=== PATIENT | female | born 1950 | race Caucasian/White ===

== ENCOUNTER 2020-09-07 19:01 | Inpatient (IN) | payer OTHER ==
[2020-09-07] VITALS (11 sets, daily range): BP systolic 62–113; BP diastolic 38–60
[~2020-09-07] VITALS: Ht 162.6 cm; Wt 77.7 kg
--- NOTE | ~2020-09-07 | EMS ---
[facility] [id number] EMS Patient Care Report Name: BILLY MORALES Room #: 170-12 ADM IN M.R.#: [id number] Admission: 09/07/20 Attend Phys: Mook Monreal Discharge: Date of : 48 Report #: [id number] THIS REPORT FOR: //name// Report Transmitted: 09/07/2020 21:45 EMS Care Summary [place], [place]/[facility] Incident [id number] @ 09/07/2020 18:28 Incident Location [address] [place] [address] Patient BILLY MORALES Female, 70 Years 1950 Patient Address [address] [place] [address] Patient History None Reported, Patient Allergies No known allergies, Patient Medications None Reported, Chief Complaint ALTERED LOC Disposition Transported [place] Dispatch Reason Hemorrhage/Laceration Transported To [facility] Narrative SCENE: ON ARRIVAL EMS MET BY PT AND GUIDED TO BACK DOOR, HE STATED THAT WAS THE ONLY WAY TO ACCESS THE PT. EMS ENTERED RESIDENCE WITH BARELY ENOUGH ROOM FOR CREW TO ENTER. HOUSE IS IN A COMPLETE STATES OF DISARRAY, WITH ITEMS AND TRASH STACKED AT LEAST 5 FOOT TALL. EMS HEARD [place] [address] EMS Patient Care Report Name: BILLY MORALES Room #: 170-12 ADM IN M.R.#: [id number] Admission: 09/07/20 Attend Phys: Mook Monreal Discharge: Date of : 48 Report #: [id number] AND WAS ABLE TO LAY EYES ON PT , WHO WAS IN A T SHIRT AND DIAPER, BUT EMS UNABLE TO ACCESS PT DUE TO CLUTTER IN HOUSE. EMS CALLED MORE PERSONNEL IN TO CLEAR A PATH TO PT AND TO CLEAR A PATH TO EXTRICATE PT. PT IS OF NO ASSISTANCE TO EMS, IS FLIPPANT ABOUT THE STATUS OF BOTH THE HOUSE AND THE PT. PT IS UNABLE TO ADVISE IF PT HAS ANY MEDICAL HISTORY, OR HOW LONG SHE HAS BEEN IN THIS CONDITION, OR EVEN WHAT IS NORMAL FOR HER. MULTIPLE BOXES OF WINE ABOUT THE RESIDENCE. PT HAD TO BE PULLED ONTO EMS ME[place]. PT IS NON VERBAL AND ONLY GRUNTS AND MOANS. PT HAS DARK RED BLOOD ABOUT THE MOUTH. PT STOMACH APPEARS DISTENDED. PT SKIN IS JAUNDICED. AMBULANCE: PT REQUIRED SUCTION OF DARK RED BLOOD FROM ORAL CAVITY. PT PLACED ON NC. IV INITIATED AND FLUIDS ADMINISTRED EN ROUTE. NO CHANGES. Initial Vitals @18:52P: 95,R: 14,BP: 103/62,GCS: 11,SpO2: 88,Revised Trauma: 11, @18:48P: 111,R: 16,BP: 79/42,GCS: 11,Glucose: 139,SpO2: 74,Revised Trauma: 10, @18:47P: 71,R: 12,Pain: 0/10,GCS: 11,SpO2: 73, Assessments @18:42MENTAL:Other,SKIN:Jaundiced,HEENT:Neck/Airway: Other,Head/Face: No Abnormalities,LUNG SOUNDS:General: Other,ABDOMEN:General: Other,PELVIS//GI:Incontinence,Pelvis GUOther,EXTREMITIES:PULSE:NEURO:@18:52MENTAL:Other,SKIN:Jaundiced,HEENT:LUNG SOUNDS:General: Other,ABDOMEN:General: Other,PELVIS//GI:EXTREMITIES:PULSE:NEURO: Impression Altered Mental Status Procedures @18:42ALS AssessmentResponse: UnchangedSucceeded@18:49Oxygen FlowRate: 3 Device: Nasal Cannula (NC) Response: ImprovedSucceeded@18:45Saline Lock 10cc (18 ga) Site: Antecubital-LeftResponse: UnchangedSucceeded@18:46Normal Saline (.9% NaCl) 200cc () Site: Antecubital-LeftResponse: UnchangedSucceeded@18:473-Lead ECGResponse: UnchangedSucceeded@18:43StretcherResponse: Unchanged@18:43General CommentsResponse: Unchanged@18:44General CommentsResponse: Unchanged@18:51Suction Response: UnchangedSucceeded Timeline 18:27,Call Received 18:27,Dispatch Notified 18:28,Dispatched 18:29,En Route 18:33,On Scene 18:42,At Patient [address] [place] [address] EMS Patient Care Report Name: ANDREWBILLYLOLA AVILA Room #: 170-12 ADM IN M.R.#: [id number] Admission: 09/07/20 Attend Phys: Mook Monreal Discharge: Date of : 48 Report #: [id number] 18:42,ALS Assessment,Response: UnchangedSucceeded, 18:43,Stretcher,Response: Unchanged 18:43,General Comments,Response: Unchanged 18:44,General Comments,Response: Unchanged 18:45,Saline Lock 10cc 18 ga Site: Antecubital-Left,Response: UnchangedSucceeded, 18:46,Normal Saline (.9% NaCl) 200cc Site: Antecubital-Left,Response: UnchangedSucceeded, 18:47,3-Lead ECG,Response: UnchangedSucceeded, 18:47,BP: / M,PULSE: 71,RR: 12 R,SPO2: 73 Ox,ETCO2: ,BG: ,PAIN: 0,GCS: 11, 18:48,BP: 79/42 M,PULSE: 111,RR: 16 R,SPO2: 74 Ox,ETCO2: ,B,PAIN: ,GCS: 11, 18:49,Oxygen FlowRate: 3 Device: Nasal Cannula (NC) Response: ImprovedSucceeded, 18:50,Depart Scene 18:51,Suction Response: UnchangedSucceeded, 18:52,BP: 103/62 M,PULSE: 95,RR: 14 R,SPO2: 88 Ox,ETCO2: ,BG: ,PAIN: ,GCS: 11, 18:54,At Destination 19:09,Call Closed Disclaimer v1.1 Copyright 2020 [employer] This EMS Care Summary contains data elements from the applicable legal record (which may be displayed differently). It is designed to provide pertinent information for the following purposes: continuity of care, clinical quality, and state data reporting. The complete legal record is available to ED staff and administrators of the receiving hospital in [employer]'s Patient Tracker. All data is provided "as is."
--- NOTE | ~2020-09-07 | P ---
[facility] [place] [address] PROCEDURE REPORT Name: BILLY MORALES Room #: 249-P ADM IN M.R.#: [id number] Admission: 09/07/20 Attend Phys: Mart Mcrae MD Discharge: Date of : 48 Report #: [id number] THIS REPORT FOR: cc: FAM - No family physician/PCP FAM - No family physician/PCP Sidney Howell MD ~ DATE OF SERVICE: 09/08/2020 INDICATION: Suspected variceal bleed. DESCRIPTION OF PROCEDURE: The consent was obtained from the patient's for repeat upper endoscopy due to ongoing active GI bleeding. The adult endoscope was introduced through the mouth into the stomach all the way to the second part of the small bowel and then withdrawn carefully. With careful inspection, there was approximately 500 mL of bright red blood in the gastric fundus that was suctioned. There was small esophageal varices with a nipple that was suspected source of the bleeding, but this was too small to treat endoscopically. The blood was suctioned and there was a hiatal hernia, severe erosive esophagitis and possible So's esophagus overlying the esophageal varices. No gastric varices were identified on retroflexion and the exam was terminated without any complications. RECOMMENDATIONS: To continue supportive care and continued to discuss goals of care with the patient and family. By: 1224 [id number] Sidney Howell MD /nt
[2020-09-07 19:21] LABS: ABSOLUTE NEUTROPHILS 5.7 thou/uL (1.4-8.2); BASOPHILS 0.8 % (0.0-2.0); LYMPHOCYTES 16.7 % (24.0-44.0); MCH 35.3 pg (26.0-34.0); MCHC 32.1 g/dL (28.0-37.0); MCV 109.8 fL (80.0-100.0); MONOCYTES 6.7 % (1.0-8.0); PLATELET COUNT 143 thou/uL (150-400); POLYS 75.8 % (36.0-66.0); RDW 17.3 % (10.5-14.5); WBC 7.6 thou/uL (4.0-11.0)
[2020-09-07 19:23] LABS: HEMATOCRIT 16.5 % (37.0-47.0); HEMOGLOBIN 5.3 gm/dL (12.0-15.0)
[2020-09-07 19:29] LABS: BE(vivo) -12.2 mmol/L (-2 to +3); HCO3 15.7 mmol/L (22.0-26.0); PCO2 48.7 mmHg (35.0-45.0); sO2 52.2 % (92.0-98.0)
[2020-09-07 19:30] LABS: CALCIUM 7.3 mg/dL (8.5-10.1); CREATININE 1.1 mg/dL (0.6-1.0); POTASSIUM 4.1 mmol/L (3.5-5.1)
[2020-09-07 19:40] LABS: ALBUMIN 1.2 g/dL (3.4-5.0); MAGNESIUM 1.7 mg/dL (1.8-2.4); TOTAL BILIRUBIN 2.5 mg/dL (0.2-1.0); TROPONIN-I 0.53 ng/mL (<0.06)
[2020-09-07 19:47] LABS: PO2 36.3 mmHg (80.0-100.0); pH 7.126 (7.360-7.450)
[2020-09-07 19:49] LABS: APTT 40.5 Seconds (24.5-32.8); INR 3.6; PROTIME 36.9 Seconds (9.3-11.4)
[2020-09-07 22:20] LABS: URINE BILIRUBIN NEGATIVE (Negative); URINE BLOOD TRACE (Negative); URINE CLARITY CLOUDY; URINE COLOR ORANGE; URINE GLUCOSE-RANDOM* NEGATIVE (Negative); URINE KETONES TRACE (Negative); URINE LEUKOCYTES-REFLEX TRACE (Negative); URINE NITRITE-REFLEX NEGATIVE (Negative); URINE PROTEIN (DIPSTICK) 1+ (Negative); URINE SPECIFIC GRAVITY >= 1.030 (1.005-1.035)
[2020-09-07 22:28] LABS: CHOLESTEROL 110 mg/dL (<200); HDL CHOLESTEROL 20 mg/dL (>40); LDL CHOLESTEROL 73 mg/dL (<100); TC:HDL 5.5 Ratio (Not establshd); TRIGLYCERIDE 85 mg/dL (<150); VLDL 17 mg/dL (<40)
[2020-09-07 22:29] LABS: SERUM ASSESSMENT Clear
[2020-09-07 22:49] LABS: BE(vivo) -10.2 mmol/L (-2 to +3); HCO3 16.3 mmol/L (22.0-26.0); PCO2 38.8 mmHg (35.0-45.0); PO2 105.7 mmHg (80.0-100.0)
[2020-09-07 22:51] LABS: pH 7.241 (7.360-7.450)
[2020-09-07 22:52] LABS: FOLIC ACID 2.7 ng/mL (8.6-58.9)
[2020-09-07 23:13] LABS: BACTERIA-REFLEX >30 Many /HPF (None Seen); CASTS None Seen /LPF (None Seen); CRYSTALS None Seen /LPF (None Seen); SQUAMOUS 0-3 Few /LPF (0-3); URINE RBC 0-2 Rare /HPF (0-2); URINE WBC-REFLEX 0-5 Rare /HPF (0-5)
[2020-09-07 23:49] LABS: HEMATOCRIT 22.6 % (37.0-47.0); MCH 32.5 pg (26.0-34.0); MCHC 32.6 g/dL (28.0-37.0); RBC 2.27 mil/uL (4.20-5.00); RDW 19.1 % (10.5-14.5); WBC 4.9 thou/uL (4.0-11.0)
[2020-09-07 23:50] LABS: HEMOGLOBIN 7.4 gm/dL (12.0-15.0); MCV 99.8 fL (80.0-100.0)
[2020-09-07 23:57] LABS: INR 2.7; PROTIME 27.7 Seconds (9.3-11.4)
[2020-09-07 23:58] LABS: CALCIUM 7.6 mg/dL (8.5-10.1); CREATININE 1.1 mg/dL (0.6-1.0); POTASSIUM 4.1 mmol/L (3.5-5.1)
[2020-09-08] VITALS (154 sets, daily range): BP systolic 52–162; BP diastolic 14–117
[2020-09-08 00:09] LABS: ALBUMIN 1.4 g/dL (3.4-5.0); TOTAL BILIRUBIN 2.7 mg/dL (0.2-1.0); TOTAL PROTEIN 5.1 g/dL (6.4-8.2)
[2020-09-08 06:33] LABS: HEMOGLOBIN 7.5 gm/dL (12.0-15.0)
[2020-09-08 06:34] LABS: HEMATOCRIT 22.7 % (37.0-47.0); MCH 31.7 pg (26.0-34.0); MCHC 33.2 g/dL (28.0-37.0); MCV 95.6 fL (80.0-100.0); RBC 2.38 mil/uL (4.20-5.00); RDW 17.3 % (10.5-14.5)
[2020-09-08 06:37] LABS: WBC 1.9 thou/uL (4.0-11.0)
[2020-09-08 06:42] LABS: % SATURATION 79 % (20-39); IRON 81 ug/dL (50-170); TIBC 102 ug/dL (250-450)
[2020-09-08 07:01] LABS: CALCIUM 6.9 mg/dL (8.5-10.1); CREATININE 1.1 mg/dL (0.6-1.0); POTASSIUM 3.8 mmol/L (3.5-5.1); TOTAL BILIRUBIN 2.4 mg/dL (0.2-1.0)
[2020-09-08 07:05] LABS: TROPONIN-I 2.46 ng/mL (<0.06)
--- NOTE | 2020-09-08 07:19 | EKG ---
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: swapna boston : 1950 Requested By: Estuardo Monsivais Order Number: [id number] MD: Abhi Paulino Measurements Intervals Williams Rate: 107 P: 90 LA: 188 QRS: 76 QRSD: 92 T: 120 QT: 332 QTc: 443 Interpretive Statements Sinus tachycardia Low voltage, extremity and precordial leads Nonspecific ST and T wave abnormality No previous ECG available for comparison Electronically Signed On 09-08-2020 7:18:56 INCREMENT MANAGER by Abhi Paulino [email or web address] <ELECTRONICALLY SIGNED> By: Abhi Paulino MD, [facility] 09/08/20717 33 33 Abhi Paulino MD, FACC /EPI
--- NOTE | 2020-09-08 08:55 | 2DMMODE ---
[facility] [place] [address] 2 D/M-MODE ECHOCARDIOGRAM Name: BILLY MORALES MARGARITA Room #: 249-P ADM IN M.R.#: [id number] Admission: 09/07/20 Attend Phys: Mart Mcrae MD Discharge: Date of : 48 Report #: [id number] THIS REPORT FOR: cc: DARIN - No family physician/PCP FAM - No family physician/PCP Bartolo Melendez MD ~ APPROVED REPORT Study performed: 09/08/2020 07:25:08 EXAM: Comprehensive 2D, Doppler, and color-flow Echocardiogram Patient Location: ICU Room #: 249 Status: routine BSA: 1.83 HR: 116 bpm BP: 63/41 mmHg Rhythm: Tachycardia Other Information Study Quality: Adequate Technically limited study due to body habitus, lungs, on vent. Indications Elevated troponin. 2D Dimensions RVDd: 36.10 mm IVSd: 9.04 (7-11mm) LVOT Diam: 19.84 (18-24mm) LVDd: 38.76 mm PWd: 7.88 (7-11mm) LVDs: 30.30 (25-40mm) Aortic Root: 28.81 mm Volumes Left Atrial Volume (Systole) Single Plane 4CH: 33.51 mL Single Plane 2CH: 42.64 mL LA ESV Index: 23.00 mL/m2 Aortic Valve AoV Peak Rishi.: 2.83 m/s AO Peak Gr.: 32.14 mmHg LVOT Max P.04 mmHg AO Mean Gr.: 19.78 mmHg [facility] [place] [address] 2 D/M-MODE ECHOCARDIOGRAM Name: BILLY MORALES MARGARITA Room #: 249-P ADM IN M.R.#: [id number] Admission: 09/07/20 Attend Phys: Mart Mcrae MD Discharge: Date of : 48 Report #: [id number] AO V2 Mean: 2.17 m/s LVOT Max V: 1.23 m/s AO V2 VTI: 41.26 cm GARETH Vmax: 1.34 cm2 Pulmonary Valve PV Peak Rishi.: 1.00 m/s PV Peak Gr.: 3.99 mmHg Tricuspid Valve TR Peak Rishi.: 2.06 m/s RAP Estimate: 5.00 mmHg TR Peak Gr.: 17.00 mmHg PA Pressure: 22.00 mmHg Left Ventricle The left ventricle is normal size. There is normal LV segmental wall motion. There is normal left ventricular wall thickness. Left ventricular systolic function is normal. LVEF is 55-60%. This study is not technically sufficient to allow evaluation of the LV diastolic function. Right Ventricle The right ventricle is normal size. The right ventricular systolic function is normal. Atria The left atrium size is normal. The right atrium size is normal. Aortic Valve Aortic valve is moderately calcified. No aortic regurgitation is present. There is mild valvular aortic stenosis. Mitral Valve Mitral valve leaflets are thickened. There is no mitral valve regurgitation noted. No evidence of mitral valve stenosis. Tricuspid Valve The tricuspid valve is normal in structure. Trace tricuspid regurgitation. Estimated PAP is 20-25mmHg. Pulmonic Valve Pulmonic valve is not well visualized. Great Vessels The aortic root is normal in size. IVC is normal in size and collapses >50% with inspiration. [facility] [address] [place] [address] 2 D/M-MODE ECHOCARDIOGRAM Name: BILLY MORALES WAGNER Room #: 249-P ADM IN M.R.#: [id number] Admission: 09/07/20 Attend Phys: Mart Mcrae MD Discharge: Date of : 48 Report #: [id number] Pericardium There is no pericardial effusion. Bilateral pleural effusions noted. <Conclusion> The left ventricle is normal size. There is normal left ventricular wall thickness. Left ventricular systolic function is normal. The right ventricle is normal size. The left atrium size is normal. There is mild valvular aortic stenosis. There is no mitral valve regurgitation noted. Trace tricuspid regurgitation. Estimated PAP is 20-25mmHg. Bilateral pleural effusions noted. <ELECTRONICALLY SIGNED> By: Bartolo Melendez MD 09/08/20 [phone] Bartolo Melendez MD /INF
--- NOTE | 2020-09-08 08:57 | NUR ---
PT CAME FROM GI LAB AT 2221 LAST NOC, P WAS HYPOTENISIVE AND INTUBATED. ABG DRAWN AND DR HOLLEY NOTIFIED AR 2255. DR HOLLEY STATED HE WOULD COME SEE PT AND PLACE A CENTRAL LINE PT LACKED ONE. ALL MEDS GIVEN PER NOV. PT SKIN IS BRUISED ON ALL PERIPHERAL IV ACCESS SITE. REDNESS NOTED ON PT'S COCYX AND HEART FOAM DRESSING PLACED ON COCYX. MEDS GIVEN PER NOV. PT ONLY HAD 62ML OUT U/O DR. HOLLEY AWARE. PT IS HYPOTENSIVE AND STILL UNSTABLE AT THIS TIME AND WILL CONTINUE TO CLOSELY MONITOR
[2020-09-08 10:01] LABS: BE(vivo) -10.5 mmol/L (-2 to +3); HCO3 15.8 mmol/L (22.0-26.0); PCO2 36.8 mmHg (35.0-45.0); PO2 112.1 mmHg (80.0-100.0); sO2 97.5 % (92.0-98.0)
[2020-09-08 10:02] LABS: pH 7.251 (7.360-7.450)
[2020-09-08 11:07] LABS: MAGNESIUM 1.9 mg/dL (1.8-2.4)
--- NOTE | 2020-09-08 13:25 | NUR ---
Patient admits with GI bleed. Admits from home where she resides with spouse. Chart reviewed, sp with RN. Patient consumes a box of wine daily. Per medical record she needs assistance from spouse for adls. EMS noted home appears as though they brandi, it was extremenly cluttered. EMS noted to plan to hotline patient/spouse. Attempted to call spouse left message on answering machine. Unaware if any children. Patient is intubated and DNR. 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
--- NOTE | 2020-09-08 14:00 | NUR ---
JOHANNA MORALES AT BEDSIDE. TALKED TO DR. DUNAWAY AND DR. FLORES. CODE STATUS CHANGED. CONTACT INFORMATION CHARTED.
[2020-09-08 15:41] LABS: HEMATOCRIT 26.2 % (37.0-47.0); HEMOGLOBIN 8.8 gm/dL (12.0-15.0); MCH 31.6 pg (26.0-34.0); MCHC 33.7 g/dL (28.0-37.0); MCV 93.8 fL (80.0-100.0); RBC 2.79 mil/uL (4.20-5.00); RDW 15.7 % (10.5-14.5); WBC 5.5 thou/uL (4.0-11.0)
--- NOTE | 2020-09-08 17:26 | NUR ---
INFORMED DR. DUNAWAY ABOUT PT LOW URINE OUTPUT. ORDER RECEIVED.
[2020-09-09] VITALS (7 sets, daily range): BP systolic 111–140; BP diastolic 41–70
[2020-09-09 02:06] LABS: HAV IgM AB (ANTI-HAV IgM) Negative (Negative); HEPATITIS B SURFACE AG Negative (Negative); HEPATITIS C VIRUS AB <0.1 (0.0-0.9)
[2020-09-09 04:05] LABS: HEMATOCRIT 22.1 % (37.0-47.0); HEMOGLOBIN 7.5 gm/dL (12.0-15.0); MCH 31.6 pg (26.0-34.0); MCHC 34.1 g/dL (28.0-37.0); MCV 92.8 fL (80.0-100.0); RBC 2.38 mil/uL (4.20-5.00); RDW 16.1 % (10.5-14.5); WBC 6.4 thou/uL (4.0-11.0)
[2020-09-09 04:25] LABS: ALBUMIN 2.9 g/dL (3.4-5.0); CALCIUM 7.5 mg/dL (8.5-10.1); MAGNESIUM 1.8 mg/dL (1.8-2.4); TOTAL PROTEIN 5.2 g/dL (6.4-8.2)
[2020-09-09 04:28] LABS: TOTAL BILIRUBIN 4.3 mg/dL (0.2-1.0)
[2020-09-09 04:29] LABS: TROPONIN-I 2.67 ng/mL (<0.06)
[2020-09-09 04:36] LABS: INR 3.3
--- NOTE | 2020-09-09 08:16 | NUR ---
PATIENT WITH PRESISTENT SATS IN THE 80'S. 100 PERCENT ON THE VENT. SPOKE WITH DR. HOLLEY. INCREASED PEEP TO 10. RESULTED IN IMPROVEMENT OF OXYGEN SATURATION. SATS NO IN MID 'S.
--- NOTE | 2020-09-09 10:50 | HC ---
[facility] [place] [address] CONSULTATION Name: BILLY MORALES Room #: 249-P ADM IN M.R.#: [id number] Admission: 09/07/20 Attend Phys: Mart Mcrae MD Discharge: Date of : 48 Report #: [id number] THIS REPORT FOR: cc: FAM - No family physician/PCP FAM - No family physician/PCP Kaden Greer MD ~ DATE OF SERVICE: 09/07/2020 HISTORY OF PRESENT ILLNESS: The patient is a 70-year-old female with a long history of alcohol abuse with recent gastrointestinal bleed. The history is obtained through her who is a fair historian. The patient is unable to give any history, although she is speaking. She is confused. She is not oriented to time or place. states the patient began having hematemesis, which was both bright red and dark reddish blood starting yesterday. She had several episodes of bleeding yesterday and then continued to have bleeding later today as well. No previous history of GI bleed per se; however, he noticed that she may have had some bleeding several months ago that spontaneously resolved. No previous history of EGD or colonoscopy. The patient's hemoglobin on admission was 5.3. Her INR was 3.6. She is not on any anticoagulation. She has an ammonia level 116. The patient has not seen a doctor in many years. Apparently was drinking large amounts of alcohol for a long period of time, although the states she started slowing down slightly. He is her primary caregiver. She is essentially bedridden. She has a long history of smoking. He has noticed that her abdomen has become more distended over the last several years. Ambulance was called to the house. Apparently, there was a large amount of alcohol noticed in the house, the house is very cluttered, difficulty even get to the patient because of having to move belongings. In the Emergency Room, she was noted to have old blood in her mouth, again is confused, 2 units of packed cells have been given. FFP has been ordered and is being delivered. She is currently in the Emergency Room on a nonrebreather, satting 89%. She is a DNR. Again, this history was obtained from her and also from Dr. Monsivais's note who evaluated the patient in the Emergency Room. PAST MEDICAL HISTORY: Long history of alcohol abuse and tobacco abuse. ALLERGIES: No known drug allergies. REVIEW OF SYSTEMS: Essentially unobtainable due to the patient's mental status as described above. SOCIAL HISTORY: Long history of smoking, long history of alcohol abuse as described above. FAMILY HISTORY: Unobtainable. [facility] [address] [place] [address] CONSULTATION Name: BILLY MORALES NEWTON Room #: 249-P ADM IN M.R.#: [id number] Admission: 09/07/20 Attend Phys: Mart Mcrae MD Discharge: Date of : 48 Report #: [id number] MEDICATIONS: None. PHYSICAL EXAMINATION: VITAL SIGNS: On admission 90/60, pulse 128, respiratory rate 34, O2 sat 92% at that time. The patient was given IV fluids and blood, blood pressure is improved to the 103/56, pulse 110, respiratory rate 20. She is again on a nonrebreather. GENERAL: She is not oriented to time or place. She is yelling out, ___ several times, unable to answer any questions. HEENT: Sclerae are icteric. Oropharynx with old blood throughout her oropharynx. NECK: Supple. CARDIOVASCULAR: Regular rhythm, tachycardic. CHEST: With decreased breath sounds bilaterally. ABDOMEN: Distended, but soft. Appears to have ascites. She is mildly tender. EXTREMITIES: +1 pitting edema to lower extremities bilaterally. LABORATORY DATA: Sodium 144, potassium 4.1, chloride 109, bicarbonate 17, BUN 17, creatinine 1.1, glucose 94, AST 51, total bilirubin 2.5, calcium 7.3, magnesium 1.7, alkaline phosphatase 67, ALT 16, total protein 5.0, albumin 1.2. Ammonia level is 116. Lactic acid level 14.6, troponin 0.53. INR 3.6. BNP 2370. WBC is 7.6, hemoglobin 5.3, this before transfusion. MCV is 109.8, platelet count 143. ABG with a pH of 7.1, pCO2 is 48, pO2 is 36. Chest x-ray, patchy bibasilar infiltrates or atelectasis, left greater than right. ASSESSMENT AND PLAN: Upper gastrointestinal bleed in a patient with likely cirrhosis, ascites, encephalopathy. These are all new diagnosis. The patient has a long history of alcohol abuse. Suspect this may be secondary to esophageal varices or gastric variceal bleed. The patient with obvious severe anemia with hemoglobin of 5. She has now been transfused a second unit of packed cells. I had a long discussion with the patient's . I explained the seriousness of her upper GI bleed and would recommend proceeding with an upper endoscopy at this point. I also explained to him that there is increased risk due to her significant elevated INR. She is getting FFP at this time. Her blood pressure has been improving since given IV fluids and blood products. She has been started on a Protonix drip as well as octreotide drip. I explained the potential risks and benefits of the procedure including possibility of banding and bleeding with the patient's . He understands and agrees with proceeding with upper endoscopy emergently tonight. We will continue to monitor hemoglobin closely. I will make further recommendations after endoscopy. Agree with Ifeoma, which has already been given. [facility] [address] [place] [address] CONSULTATION Name: BILLY MORALES MARGARITA Room #: 249-P ADM IN M.R.#: [id number] Admission: 09/07/20 Attend Phys: Mart Mcrae MD Discharge: Date of : 48 Report #: [id number] Thank you for allowing me to participate in her care. <ELECTRONICALLY SIGNED> By: Kaden Greer MD 09/09/20 1050 2217 [id number] Kadne Greer MD /nt
--- NOTE | 2020-09-09 10:50 | P ---
[facility] [place] [address] PROCEDURE REPORT Name: BILLY MORALES Room #: 249-P ADM IN M.R.#: [id number] Admission: 09/07/20 Attend Phys: Mart Mcrae MD Discharge: Date of : 48 Report #: [id number] THIS REPORT FOR: cc: FAM - No family physician/PCP FAM - No family physician/PCP Kaden Greer MD ~ DATE OF SERVICE: 09/07/2020 PROCEDURE PERFORMED: Upper endoscopy. HISTORY: The patient is a 70-year-old female who presented with hematemesis. She has a long history of alcohol abuse. On admission, she was noted to have severe anemia with hemoglobin of 5. She has now been transfused 2 units of packed cells. All history was obtained through her , as the patient is confused. Possible bleed approximately 1 month ago. This spontaneously resolved. No previous history of endoscopy per the . She has a long history of alcohol abuse. She has what appears to be ascites and elevated liver function tests. She has got an INR of 3.6. She is not on any anticoagulation therapy. She was hypotensive, tachycardic on admission. She has received IV fluids and 2 units of packed cells. She is currently receiving FFP at this time. The patient is also on a nonrebreather, currently recommend proceeding with an upper endoscopy. I had a long discussion with the patient's regarding the potential risks and benefits of the procedure. Those risks including but not limited to bleeding, perforation, the risk of sedation. He understood these risks and gave informed consent. DESCRIPTION OF PROCEDURE: The procedure was performed in the operating room under a general anesthesia. As Dr. Pollard was intubating the patient, there was a large amount of old blood in her oropharynx that needed to be suctioned. She was intubated successfully. Next, using a standard Olympus upper endoscope, the scope was placed in the patient's mouth and advanced under direct vision through the esophagus, stomach and into the second portion of the duodenum. There was a moderate amount of old blood within the esophagus. Washings and aspirations were performed. Upon entering the stomach, a large amount of old blood, liquid blood, was seen in the stomach, which limited visualization in the fundus and the upper body. I aspirated away approximately 800 mL of old blood. Interestingly, no significant clots were noted. Once the blood was aspirated away to visualize the stomach fairly well, although there was some old blood remaining, no obvious gastric varices were noted. A diffuse portal gastropathy was noted, which involved the entire stomach. The pylorus was normal and patent. The duodenal bulb showed some mild duodenitis. At the first and second portion, old blood was noted. Throughout these areas, multiple washings and aspirations were also performed. No obvious ulcerations or bleeding was noted in the duodenum. At this point, the scope was then brought back up into the patient's esophagus and again washings and aspirations were performed. The [address] [address] PROCEDURE REPORT Name: BILLY MORALES Room #: 249-P ADM IN M.R.#: [id number] Admission: 09/07/20 Attend Phys: Mart Mcrae MD Discharge: Date of : 48 Report #: [id number] upper esophagus was normal. Beginning in the mid esophagus, grade 1-2 esophageal varix was noted. No red spots or active bleeding were noted. As the scope was advanced into the distal esophagus, there appears to be a segment of So's esophagus, approximately 5-6 cm in the distal esophagus, also noted to have erosive esophagitis, grade B to C in this area, also again to have varices. No red hernan signs were seen; however, there was a white cap in one area in the distal esophagus near the GE junction. This, however, was not on a varix that appears engorged. In fact, it was fairly flat. Multiple washings and aspirations again were performed in this area. I did not feel like banding would be a good option, as this area is somewhat flat where this white cap is located. There is no active bleeding at this time. The other areas of varices that were more engorged showed no signs of a clot or red hernan sign in the distal esophagus. At this point, the scope was then withdrawn and the procedure terminated. The patient tolerated the procedure well. IMPRESSION: 1. Likely bleeding from esophageal varices; however, area could easily be banded where there was a tiny white cap that may be a recent source of bleeding due to the area being somewhat flat and I did not think this was going to be able to be banded. 2. Grade C erosive esophagitis. 3. Likely So's esophagus. 4. Large amount of old blood within the stomach aspirated away. 5. Diffuse portal hypertensive gastropathy. No obvious gastric varices were noted. RECOMMENDATIONS: The patient is going to be remained intubated and transferred to the ICU. We will continue to monitor hemoglobin closely. She has now received 2 units of packed cells as well as FFP. We will need to continue to monitor hemoglobin and INR. The patient is already on a Protonix drip as well as octreotide drip. I would avoid placing an OG at this time. If there are signs of further bleeding in the future, may need to consider other options including possible TIPS. Thank you for allowing me to participate in her care. <ELECTRONICALLY SIGNED> By: Kaden Greer MD 09/09/20 1050 2225 2252 Kaden Greer MD /nt
--- NOTE | 2020-09-09 10:59 | NUR ---
AT BEDSIDE WANTING TO DISCUSS WITHDRAWL OF CARE. SPOKE WITH DR. ANN AT BEDSIDE, EXPLAINED PATIENTS CRITICAL CONDITION. PAGE OUT TO DR. HOLLEY TO DISCUSS PLAN OF CARE. CALL PLACED TO [facility], REFERRAL NUMBER NOTED. PATIENT IS NOT A DONOR CANIDATE AT THIS TIME, WILL UPDATE UPON PLAN OF EXTUBATION.
--- NOTE | 2020-09-09 12:49 | NUR ---
EXTUBATED TO COMFORT MEASURES AT 1245 BY RT.
--- NOTE | 2020-09-09 15:44 | NUR ---
TOD 1414, MTN notified. Left message for Max. He was at bedside prior to extubation and declined staying for extubation process. Asked if nurse could call at TOD. attempted to callx2 with no answer. Provided call back number on voicemail. TOD decleared by 2 RN's. pt with no belongings. security informed. wasted fentayl and versed with second RN verification.
--- NOTE | 2020-09-10 09:38 | NUR ---
PT'S JOHANNA CALLED AT 0938, 09/10/20 FOR TIME OF OF PT.
--- NOTE | 2020-09-11 07:24 | EKG ---
[address] [email or web address] [address] ELECTROCARDIOGRAM REPORT Name: BILLY MORALES Room #: 249-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 : 1950 Requested By: Mart Mcrae Order Number: [id number] MD: Abhi Paulino Measurements Intervals [place] Rate: 108 P: 102 UT: 121 QRS: 81 QRSD: 79 T: 227 QT: 424 QTc: 569 Interpretive Statements Sinus tachycardia Low voltage Nonspecific T abnormalities, lateral leads Prolonged QT interval No previous ECG available for comparison Electronically Signed On 09-11-2020 7:24:30 [employer] by Abhi Paulino [email or web address] <ELECTRONICALLY SIGNED> By: Abhi Paulino MD, [facility] 09/11/20723 33 33 Abhi Paulino MD, FACC /EPI
== END 2020-09-09 14:14 | DRG 853 ==
LOC: ER 19:01 → ICU 20:13 → EROBS 20:13 → ICU 22:51
PROVIDERS: Anesthesiology; Emergency Medicine; Nurse Practitioner Family; Pediatrics; ADMIT Internal Medicine; ATTEND Internal Medicine
PROC: 5A1945Z Respiratory Ventilation, 24-96 Consecutive Hours (ICD-10-PCS; principal; 2020-09-07)
PROC: 0D958ZZ Drainage of Esophagus, Via Natural or Artificial Opening Endoscopic (ICD-10-PCS; principal; 2020-09-07)
PROC: 0BH17EZ Insertion of Endotracheal Airway into Trachea, Via Natural or Artificial Opening (ICD-10-PCS; principal; 2020-09-07)
PROC: 0D968ZZ Drainage of Stomach, Via Natural or Artificial Opening Endoscopic (ICD-10-PCS; principal; 2020-09-07)
PROC: 30233M1 Transfusion of Nonautologous Plasma Cryoprecipitate into Peripheral Vein, Percutaneous Approach (ICD-10-PCS; principal; 2020-09-07)
PROC: 30233N1 Transfusion of Nonautologous Red Blood Cells into Peripheral Vein, Percutaneous Approach (ICD-10-PCS; principal; 2020-09-07)
PROC: 02HV33Z Insertion of Infusion Device into Superior Vena Cava, Percutaneous Approach (ICD-10-PCS; 2020-09-08)
PROC: 0D968ZZ Drainage of Stomach, Via Natural or Artificial Opening Endoscopic (ICD-10-PCS; 2020-09-08)
DX: A41.9 Sepsis, unspecified organism (principal); I85.01 Esophageal varices with bleeding; J96.01 Acute respiratory failure with hypoxia; J96.02 Acute respiratory failure with hypercapnia; J18.9 Pneumonia, unspecified organism; G92 Toxic encephalopathy; K29.81 Duodenitis with bleeding; K20.91 Esophagitis, unspecified with bleeding; R18.8 Other ascites; D68.9 Coagulation defect, unspecified; K76.6 Portal hypertension; E87.2 Acidosis; G93.40 Encephalopathy, unspecified; D62 Acute posthemorrhagic anemia; F10.10 Alcohol abuse, uncomplicated; Y90.9 Presence of alcohol in blood, level not specified; K44.9 Diaphragmatic hernia without obstruction or gangrene; K31.89 Other diseases of stomach and duodenum; R57.1 Hypovolemic shock; K31.9 Disease of stomach and duodenum, unspecified; K22.70 Barrett's esophagus without dysplasia; F17.210 Nicotine dependence, cigarettes, uncomplicated; Z66 Do not resuscitate; Z20.828 Contact with and (suspected) exposure to other viral communicable diseases; Z74.01 Bed confinement status
CPT/HCPCS: 10078; 62110; 62900; 85076